=== PATIENT | female | born 2000 | race African-American/Black ===

== ENCOUNTER 2022-06-25 13:15 | Inpatient (IN) | payer OTHER ==
[2022-06-25] MEDS ORDERED: MAGNESIUM SULFATE 20GM/500ML - 20 GM/500 ML INFUS.BAG ONE (14:24)
[2022-06-25] MEDS ORDERED: NIFEdipine 10 MG CAPSULE (FP) ONE (14:25)
[2022-06-25] MEDS ORDERED: MAGNESIUM 4GM/H20 - 4 GM/100 ML IVPB IVPB ONE (15:00)
[2022-06-25] MEDS ORDERED: NIFEdipine 10 MG CAPSULE (FP) PO ONE ×2 (15:00→15:20)
[2022-06-25] MEDS ORDERED: MAGNESIUM SULFATE 20GM/500ML - 20 GM/500 ML INFUS.BAG IVPB ONE ×2 (15:30)
[2022-06-25 15:52] VITALS: BMI 28.3
[2022-06-25 16:23] LABS: BASO % 0.6 % (0-2.0); EOS % 0.7 % (0-4.5); LYMPH % 34.8 % (8-40); MCH 27.6 pg (25.7-33.7); MCHC 33.4 g/dl (32.0-36.0); MEAN CELL VOLUME 82.5 fl (80-96); MEAN PLT VOLUME 8.4 fl (7.5-11.1); NEUT % 56.9 % (42.8-82.8); PLATELET COUNT 272 10^3/uL (134-434); RBC 4.72 M/mm3 (3.60-5.2); RDW 14.3 % (11.6-15.6); WHITE BLOOD COUNT 11.7 K/mm3 (4.0-10.0)
[2022-06-25 16:25] LABS: RETICULOCYTES 2.47 % (0.5-1.5)
[2022-06-25 16:32] LABS: INR 0.79 (0.83-1.09); PROTHROMBIN TIME (PATIENT) 9.2 SEC (9.7-13.0)
[2022-06-25 16:35] LABS: ACTIVATED PTT 31.4 SECONDS (25.2-36.5)
[2022-06-25 16:44] LABS: ALBUMIN 2.1 g/dl (3.4-5.0); BLOOD UREA NITROGEN 14.4 mg/dL (7-18)
[2022-06-25 16:45] LABS: CALCIUM 9.1 mg/dL (8.5-10.1)
[2022-06-25 16:46] LABS: BLOOD UREA NITROGEN 14.2 mg/dL (7-18)
[2022-06-25 16:47] LABS: CREATININE 0.9 mg/dL (0.55-1.3)
[2022-06-25 16:48] LABS: URIC ACID 8.5 mg/dL (2.6-7.2)
[2022-06-25 16:49] LABS: BILIRUBIN,TOTAL 0.1 mg/dL (0.2-1); TOT PROT 6.5 g/dl (6.4-8.2)
[2022-06-25 17:37] LABS: HIV INTERPRETATION NEGATIVE (NEGATIVE)
[2022-06-25] MEDS ORDERED: FENTANYL CITRATE/PF 50 MCG/ML VIAL ONE (19:49)
[2022-06-25] MEDS ORDERED: CITRIC ACID/SODIUM CITRATE 30 ML UNIT-DOSE CUP PO ONE (19:49)
[2022-06-25] MEDS ORDERED: ePHEDrine SULFATE 50 MG/1 ML AMPULE ONE (19:49)
[2022-06-25] MEDS ORDERED: CARBOPROST TROMETHAMINE 250 MCG/ML AMPUL IM ONE (21:00)
[2022-06-25] MEDS ORDERED: ACETAMINOPHEN 325 MG TABLET (FP) PO PRN (21:19)
[2022-06-25] MEDS ORDERED: IBUPROFEN 800 MG/8 ML IJ IVPB PRN (21:19)
[2022-06-25] MEDS ORDERED: METHYLERGONOVINE MALEATE 0.2 MG/1 ML AMP IM PRN (21:19)
[2022-06-25] MEDS ORDERED: SENNOSIDES/DOCUSATE COMBO (SENNA PLUS) TABLET (UD) PO PRN (21:19)
[2022-06-25] MEDS ORDERED: NIFEdipine E.R. 30 MG TABLET PO SCH ×2 (21:30→21:40)
[2022-06-25] MEDS ORDERED: OXYTOCIN 20 UNITS in 0.9% NS 20 UNIT/1,000 ML INFUS.BAG IV SCH (21:30)
[2022-06-25] MEDS ORDERED: NIFEdipine E.R. 30 MG TABLET PO ONE (22:31)
[2022-06-25] MEDS ORDERED: TETRAHYDROZOLINE HCL EYE DROPS OD PRN (22:35)
[2022-06-25] MEDS ORDERED: LABETALOL HCL 20 MG/4 ML VIAL ONE (23:28)
[2022-06-25] MEDS ORDERED: LACTATED RINGERS SOLUTION 1,000 ML/1,000 ML INFUS.BAG IV SCH (23:45)
[2022-06-25] MEDS ORDERED: LABETALOL HCL 5 MG/1 ML (100MG/20 ML VIAL) IVPUSH ONE (23:47)
[2022-06-26] MEDS: LABETALOL HCL 200 MG TABLET (FP) PO SCH ×2 (00:30→10:10)
[2022-06-26] MEDS ORDERED: LABETALOL HCL 100 MG TABLET (FP) ONE ×2 (00:31→09:35)
[2022-06-26] MEDS ORDERED: OXYTOCIN 20 UNITS in 0.9% NS 20 UNIT/1,000 ML INFUS.BAG IV ONE ×2 (01:08→14:23)
[2022-06-26] MEDS ORDERED: MAGNESIUM SULFATE 20GM/500ML - 20 GM/500 ML INFUS.BAG ONE ×2 (01:08→10:50)
[2022-06-26] MEDS: FERROUS SO4 325 MG TABLET (FP) PO SCH ×3 (01:34→21:47)
[2022-06-26 01:37] LABS: MAGNESIUM 6.9 mg/dL (1.8-2.4)
[2022-06-26 08:54] LABS: BASO % 0.4 % (0-2.0); EOS % 0.2 % (0-4.5); HEMATOCRIT 31.7 % (32.4-45.2); HEMOGLOBIN 10.8 GM/dL (10.7-15.3); LYMPH % 23.9 % (8-40); MCH 28.3 pg (25.7-33.7); MCHC 34.2 g/dl (32.0-36.0); MEAN CELL VOLUME 82.7 fl (80-96); MEAN PLT VOLUME 8.6 fl (7.5-11.1); MONO % 6.3 % (3.8-10.2); NEUT % 69.2 % (42.8-82.8); PLATELET COUNT 235 10^3/uL (134-434); RBC 3.84 M/mm3 (3.60-5.2); RDW 14.6 % (11.6-15.6); WHITE BLOOD COUNT 12.4 K/mm3 (4.0-10.0)
[2022-06-26] MEDS ORDERED: OXYTOCIN 20 UNITS in 0.9% NS 20 UNIT/1,000 ML INFUS.BAG IV SCH (08:57)
[2022-06-26] MEDS ORDERED: IBUPROFEN 800 MG/8 ML IJ IVPB ONE (09:13)
[2022-06-26] MEDS ORDERED: oxyCODONE HCL 5 MG TABLET PO PRN ×2 (09:19)
[2022-06-26] MEDS ORDERED: diphenhydrAMINE HCL 25 MG CAPSULE (FP) PO ONE (09:36)
[2022-06-26] MEDS ORDERED: diphenhydrAMINE HCL 25 MG CAPSULE (FP) PO PRN (09:51)
[2022-06-26 09:55] LABS: MAGNESIUM 8.6 mg/dL (1.8-2.4)
[2022-06-26] MEDS: PRENATAL VITAMINS W/ FOLIC ACID TABLET (FP) PO SCH (10:03)
[2022-06-26] MEDS ORDERED: MAGNESIUM SULFATE 20GM/500ML - 20 GM/500 ML INFUS.BAG IVPB ONE (11:15)
[2022-06-26] MEDS ORDERED: LABETALOL HCL 200 MG TABLET (FP) PO SCH (12:30)
[2022-06-26] MEDS ORDERED: BISACODYL 10 MG SUPP.RECT RC PRN (21:19)
[2022-06-26] MEDS: NIFEdipine E.R. 30 MG TABLET PO SCH (21:47)
[2022-06-27] MEDS: SIMETHICONE 80 MG TAB.CHEW (FP) PO PRN ×2 (07:50→15:19)
[2022-06-27] MEDS: IBUPROFEN 600 MG TABLET (FP) PO PRN ×2 (07:50→15:19)
[2022-06-27] MEDS: FERROUS SO4 325 MG TABLET (FP) PO SCH ×2 (10:58→22:04)
[2022-06-27] MEDS: PRENATAL VITAMINS W/ FOLIC ACID TABLET (FP) PO SCH (10:58)
[2022-06-27] MEDS: NIFEdipine E.R. 30 MG TABLET PO SCH (22:04)
[2022-06-28] MEDS: IBUPROFEN 600 MG TABLET (FP) PO PRN ×3 (01:38→20:28)
[2022-06-28] MEDS: SIMETHICONE 80 MG TAB.CHEW (FP) PO PRN ×3 (01:38→20:28)
[2022-06-28] MEDS: PRENATAL VITAMINS W/ FOLIC ACID TABLET (FP) PO SCH (09:47)
[2022-06-28] MEDS: FERROUS SO4 325 MG TABLET (FP) PO SCH ×2 (09:47→22:47)
[2022-06-28 22:37] VITALS: RESP 18
[2022-06-28] MEDS: NIFEdipine E.R. 30 MG TABLET PO SCH (22:47)
[2022-06-29] MEDS: SIMETHICONE 80 MG TAB.CHEW (FP) PO PRN ×2 (06:12→21:07)
[2022-06-29] MEDS: IBUPROFEN 600 MG TABLET (FP) PO PRN ×2 (06:12→21:07)
[2022-06-29] MEDS: PRENATAL VITAMINS W/ FOLIC ACID TABLET (FP) PO SCH (09:17)
[2022-06-29] MEDS: FERROUS SO4 325 MG TABLET (FP) PO SCH ×2 (09:17→21:07)
[2022-06-29 09:35] VITALS: TEMP 98.1
[2022-06-29 15:00] VITALS: BP 138/90; PULSE 109
== END 2022-06-29 21:31 | disposition home or self-care (01) | DRG 540 ==
LOC: JLDR 13:15 → J3W 06-26 14:55
PROVIDERS: ADMIT Obstetrics & Gynecology; ATTEND Obstetrics & Gynecology
PROC: 10D00Z1 Extraction of Products of Conception, Low, Open Approach (ICD-10-PCS; principal; 2022-06-25)
DX: O14.14 Severe pre-eclampsia complicating childbirth (principal); O36.5930 Maternal care for other known or suspected poor fetal growth, third trimester, not applicable or unspecified; O34.211 Maternal care for low transverse scar from previous cesarean delivery; Z3A.38 38 weeks gestation of pregnancy; Z37.0 Single live birth
CPT/HCPCS: 36415; 80048; 80053; 82570; 82977; 83735; 84156; 84550; 85025; 85032; 85045; 85610; 85730; 86780; 86850; 86900; 86901; 87389; 88307-TC; 94010; C9803-CS; U0003; U0005